=== PATIENT | female | born 1965 | race Caucasian/White ===

== ENCOUNTER 2016-07-25 13:37 | Emergency (ER) | payer OTHER ==
[~2016-07-25] VITALS: Ht 162.5 cm; Wt 99.8 kg
[~2016-07-25 13:37] MED LIST: ABILIFY10 MG PO; ABILIFY15 MG PO; AUGMENTIN 500 M1 TAB PO; AUGMENTIN 875 M1 TAB PO; BACTRIM DS 8001 TA1 PO; FLEXERIL5 MG PO; KEFLEX500 MG PO; LIDEX 0.05% CRE15 GM T; LITHIUM CARBON300 MG PO; MOTRIN800 MG PO; PREDNICOT20 MG PO; PROVENTIL0.09 MG/AC IH; TESSALON PERLE200 MG PO; TOPAMAX200 MG; TOPAMAX200 MG PO; TRAZADONE HYDR100 MG PO; TYLENOL W/CODEI1 TA2 PO; ULTRAM50 MG PO; ZITHROMAX Z PA250 MG PO
[2016-07-25] MEDS ORDERED: LAMICTAL25 MG PO (13:52)
[2016-07-25 14:27] LABS: BASO # 0.1 10*3/uL (0.0-0.1); BASO % 0.7 % (0.0-1.0); EOS # 0.1 10*3/uL (0.0-0.4); EOS % 1.7 % (1.0-4.0); HEMATOCRIT 45.1 % (37.0-47.0); HEMOGLOBIN 14.9 g/dl (12.0-16.0); LYMPH # 2.3 10*3/uL (1.3-4.4); LYMPH % 27.8 % (27.0-41.0); MEAN CORPUSCULAR HGB 29.7 pg (27.0-31.0); MEAN PLATELET VOLUME 10.7 fl (9.6-12.3); MONO # 0.4 10*3/uL (0.1-1.0); MONO % 5.2 % (3.0-9.0); NEUT # 5.4 10*3/uL (2.3-7.9); NEUT % 64.2 % (47.0-73.0); PLATELET COUNT AUTOMATED 200 10*3/uL (130-400); RED BLOOD COUNT 5.01 10*6/uL (4.10-5.10); RED CELL DISTRI WIDTH 13.1 % (0-14.5); WHITE BLOOD COUNT 8.4 10*3/uL (4.8-10.8)
[2016-07-25 14:36] LABS: PROTHROMBIN TIME 10.5 SECONDS (9.0-12.4)
[2016-07-25 14:43] LABS: ALBUMIN 3.7 gm/dl (3.1-4.5); ALKALINE PHOSPHATASE 121 U/L (45-117); BILIRUBIN, TOTAL 0.2 mg/dl (0.2-1.0); BUN 11 mg/dl (7-24); CARBON DIOXIDE 28 mmol/L (21-32); CHLORIDE 109 mmol/L (98-107); CPK 41 U/L (26-192); EST GLOM FILT AFRICAN AMERICAN > 60 ml/min; GLUCOSE 82 mg/dL (65-99); MAGNESIUM 2.2 mg/dL (1.5-2.1); POTASSIUM 3.9 mmol/L (3.5-5.1); SGOT/AST 9 IU/L (3-35); SGPT/ALT 19 U/L (12-78); SODIUM 145 mmol/L (136-145); TOTAL PROTEIN 6.8 gm/dL (6.4-8.2)
[2016-07-25 14:45] LABS: CKMB 1.2 ng/ml (0.5-3.6)
[2016-07-25 14:52] LABS: TROPONIN I < 0.015 ng/ml (<0.045)
[2016-07-25 15:24] VITALS: BP 179/98
[2016-07-25] MEDS ORDERED: LISINOPRIL10 M1 PO (15:37)
== END 2016-07-25 15:30 | disposition home or self-care (01) ==
LOC: ED 13:37
PROVIDERS: Internal Medicine
DX: I15.9 Secondary hypertension, unspecified (principal); F17.200 Nicotine dependence, unspecified, uncomplicated

== ENCOUNTER → 2016-08-19 | Outpatient (CLI) | payer OTHER ==
[~2016-08-19] MED LIST changes: +LAMICTAL25 MG PO; +LISINOPRIL10 M1 PO
== END | disposition home or self-care (01) ==
LOC: MAMMO 12:54
DX: Z12.31 Encounter for screening mammogram for malignant neoplasm of breast (principal)

== ENCOUNTER → 2019-03-08 | Outpatient (CLI) | payer OTHER | END | disposition home or self-care (01) | LOC: US 08:20 | DX: K76.0 Fatty (change of) liver, not elsewhere classified (principal) ==

== ENCOUNTER → 2022-08-28 | Outpatient (CLI) | payer OTHER ==
[2022-08-28 09:05] LABS: BASO # 0.1 10*3/uL (0.0-0.1); BASO % 0.7 % (0.0-1.0); EOS # 0.2 10*3/uL (0.0-0.4); EOS % 1.7 % (1.0-4.0); HEMATOCRIT 46.2 % (37.0-47.0); LYMPH # 2.7 10*3/uL (1.3-4.4); LYMPH % 29.1 % (27.0-41.0); MEAN CELL VOLUME 90.8 fl (81.0-99.0); MEAN CORPUSCULAR HGB 28.5 pg (27.0-31.0); MEAN CORPUSCULAR HGB CONC 31.4 g/dl (33.0-37.0); MEAN PLATELET VOLUME 10.5 fl (9.6-12.3); MONO # 0.6 10*3/uL (0.1-1.0); MONO % 6.2 % (3.0-9.0); NEUT # 5.8 10*3/uL (2.3-7.9); PLATELET COUNT AUTOMATED 259 10*3/uL (130-400); RED BLOOD COUNT 5.09 10*6/uL (4.10-5.10); RED CELL DISTRI WIDTH 13.1 % (0-14.5); WHITE BLOOD COUNT 9.4 10*3/uL (4.8-10.8)
[2022-08-28 10:14] LABS: ALKALINE PHOSPHATASE 116 U/L (46-116); BUN 13 mg/dl (9-23); CHLORIDE 105 mmol/L (98-107); CHOLESTEROL 161 mg/dL (<200); FREE T4 0.88 ng/dl (0.89-1.76); LDL CHOLESTEROL 102 mg/dL (9-159); SGPT/ALT 11 U/L (10-49); THYROID STIM HORMONE (HS) 2.324 uIU/ml (0.550-4.780); TOTAL PROTEIN 6.9 gm/dL (6.0-8.0); TRIGLYCERIDES 62 mg/dl (<150); VITAMIN D, 25-HYDROXY 25.9 ng/mL (30-100)
== END | disposition home or self-care (01) ==
LOC: LAB 01:37
PROVIDERS: ATTEND Internal Medicine
DX: M47.816 Spondylosis without myelopathy or radiculopathy, lumbar region (principal); I10 Essential (primary) hypertension; M26.643 Arthritis of bilateral temporomandibular joint

== ENCOUNTER → 2022-11-26 | Outpatient (CLI) | payer OTHER | END | disposition home or self-care (01) | LOC: MAMMO 08:56 | PROVIDERS: ATTEND Internal Medicine | DX: Z12.31 Encounter for screening mammogram for malignant neoplasm of breast (principal) ==

== ENCOUNTER 2023-02-17 15:42 | Emergency (ER) | payer OTHER ==
[~2023-02-17] VITALS: Ht 165.1 cm; Wt 83.5 kg
[2023-02-17 16:00] VITALS: BP 152/101
[2023-02-17 16:28] LABS: BASO # 0.1 10*3/uL (0.0-0.1); BASO % 0.7 % (0.0-1.0); EOS # 0.1 10*3/uL (0.0-0.4); EOS % 0.9 % (1.0-4.0); HEMATOCRIT 47.1 % (37.0-47.0); LYMPH # 2.8 10*3/uL (1.3-4.4); LYMPH % 20.1 % (27.0-41.0); MEAN CELL VOLUME 90.6 fl (81.0-99.0); MEAN CORPUSCULAR HGB 30.4 pg (27.0-31.0); MEAN CORPUSCULAR HGB CONC 33.5 g/dl (33.0-37.0); MEAN PLATELET VOLUME 10.4 fl (9.6-12.3); MONO # 1.2 10*3/uL (0.1-1.0); MONO % 8.2 % (3.0-9.0); NEUT # 9.8 10*3/uL (2.3-7.9); NEUT % 69.7 % (47.0-73.0); PLATELET COUNT AUTOMATED 258 10*3/uL (130-400); RED CELL DISTRI WIDTH 13.6 % (0-14.5)
[2023-02-17 16:52] LABS: ALKALINE PHOSPHATASE 105 U/L (46-116); BUN 15 mg/dl (9-23); CHLORIDE 109 mmol/L (98-107); POTASSIUM 3.7 mmol/L (3.4-5.1); SGPT/ALT 11 U/L (10-49); TOTAL PROTEIN 6.7 gm/dL (6.0-8.0)
[2023-02-17 17:15] LABS: BILIRUBIN Negative (Negative); BLOOD 3+ (Negative); CLARITY Cloudy (Clear); COLOR Yellow (Yellow); GLUCOSE Negative (Negative); KETONE Trace (Negative); LEUKO ESTERASE Negative (Negative); NITRITE Negative (Negative); SPECIFIC GRAVITY >= 1.030 (1.001-1.030)
[2023-02-17 17:30] LABS: BACTERIA 2+; RBC TNTC rbc/hpf (0-2)
[2023-02-17] MEDS ORDERED: ATORVASTATIN CA20 M1 PO (17:58)
[2023-02-17] MEDS ORDERED: LISINOPRIL20 MG PO (17:58)
[2023-02-17] MEDS ORDERED: VENLAFAXINE HYD75 M3 PO (17:58)
[2023-02-17] MEDS ORDERED: VITAMIN D350 MCG PO (17:58)
[2023-02-17] MEDS ORDERED: TRULICITY3 MG/0.5 M SQ (17:59)
[2023-02-17] MEDS ORDERED: OMEPRAZOLE MAGN20 MG PO (17:59)
[2023-02-17] MEDS ORDERED: ATENOLOL25 MG PO (17:59)
[2023-02-17] MEDS ORDERED: METFORMIN HYDR500 MG PO (18:00)
== END 2023-02-17 21:44 | disposition short-term general hospital (02) ==
LOC: ED 15:42
PROVIDERS: Physician Assistant Medical
DX: N13.2 Hydronephrosis with renal and ureteral calculous obstruction (principal); N34.2 Other urethritis; R11.2 Nausea with vomiting, unspecified; F32.A Depression, unspecified; K21.9 Gastro-esophageal reflux disease without esophagitis; Z90.710 Acquired absence of both cervix and uterus; Z98.890 Other specified postprocedural states

== ENCOUNTER → 2023-03-04 | Outpatient (CLI) | payer OTHER ==
[~2023-03-04] MED LIST changes: +ATENOLOL25 MG PO; +ATORVASTATIN CA20 M1 PO; +LISINOPRIL20 MG PO; +METFORMIN HYDR500 MG PO; +OMEPRAZOLE MAGN20 MG PO; +TRULICITY3 MG/0.5 M SQ; +VENLAFAXINE HYD75 M3 PO; +VITAMIN D350 MCG PO
== END | disposition home or self-care (01) ==
LOC: RAD 12:02
PROVIDERS: ATTEND Urology
DX: N20.0 Calculus of kidney (principal)

== ENCOUNTER 2023-03-19 08:27 | Emergency (ER) | payer OTHER | END 2023-03-19 09:27 | disposition left against medical advice (07) | LOC: ED 08:27 | DX: B99.9 Unspecified infectious disease (principal); Z53.21 Procedure and treatment not carried out due to patient leaving prior to being seen by health care provider ==

== ENCOUNTER 2023-07-18 23:55 | Emergency (ER) | payer OTHER ==
[~2023-07-18] VITALS: Ht 162.5 cm; Wt 86.4 kg
[2023-07-19 00:46] LABS: BASO # 0.1 10*3/uL (0.0-0.1); BASO % 0.8 % (0.0-1.0); EOS # 0.2 10*3/uL (0.0-0.4); EOS % 2.3 % (1.0-4.0); HEMATOCRIT 47.3 % (37.0-47.0); LYMPH # 3.7 10*3/uL (1.3-4.4); LYMPH % 37.7 % (27.0-41.0); MEAN CELL VOLUME 93.7 fl (81.0-99.0); MEAN CORPUSCULAR HGB 29.7 pg (27.0-31.0); MEAN CORPUSCULAR HGB CONC 31.7 g/dl (33.0-37.0); MEAN PLATELET VOLUME 10.8 fl (9.6-12.3); MONO # 0.8 10*3/uL (0.1-1.0); MONO % 7.7 % (3.0-9.0); NEUT % 51.3 % (47.0-73.0); PLATELET COUNT AUTOMATED 232 10*3/uL (130-400); RED BLOOD COUNT 5.05 10*6/uL (4.10-5.10); RED CELL DISTRI WIDTH 14.5 % (0-14.5); WHITE BLOOD COUNT 9.8 10*3/uL (4.8-10.8)
[2023-07-19 00:57] LABS: ACT PARTIAL THROMBO TIME 25.8 SECONDS (20.0-32.1)
[2023-07-19 01:11] LABS: ALKALINE PHOSPHATASE 89 U/L (46-116); BUN 13 mg/dl (9-23); CHLORIDE 105 mmol/L (98-107); CPK 28 U/L (34-171); POTASSIUM 4.2 mmol/L (3.4-5.1); SGPT/ALT 14 U/L (5-49); TOTAL PROTEIN 6.7 gm/dL (6.0-8.0)
[2023-07-19 04:45] LABS: BILIRUBIN Negative (Negative); BLOOD Negative (Negative); CLARITY Clear (Clear); COLOR Yellow (Yellow); GLUCOSE Negative (Negative); KETONE Trace (Negative); LEUKO ESTERASE Trace (Negative); NITRITE Negative (Negative); PH 5.5 (4.5-8.0)
[2023-07-19 04:52] LABS: EPITHELIAL CELLS 16-20; URINE AMPHETAMINES Negative (1000ng/ml); URINE BARBITURATES Negative (200ng/ml); URINE BENZODIAZEPINES Negative (200ng/ml); URINE CANNABINOIDS (THC) Positive (50ng/ml); URINE COCAINE Negative (300ng/ml); URINE METHADONE Negative (300ng/ml); URINE OPIATES Negative (300ng/ml); URINE PHENCYCLIDINE Negative (25ng/ml)
[2023-07-19 07:14] VITALS: BP 112/70
== END 2023-07-19 08:15 | disposition left against medical advice (07) ==
LOC: ED 23:55
PROVIDERS: Emergency Medicine
DX: R56.9 Unspecified convulsions (principal); G93.40 Encephalopathy, unspecified; G43.909 Migraine, unspecified, not intractable, without status migrainosus; I10 Essential (primary) hypertension; Z79.899 Other long term (current) drug therapy; Z87.442 Personal history of urinary calculi; Z98.890 Other specified postprocedural states; Z90.711 Acquired absence of uterus with remaining cervical stump